=== PATIENT | female | born 1995 | race Caucasian/White ===

== ENCOUNTER 2016-07-12 12:14 | Emergency (ER) | payer OTHER ==
[2016-07-12 12:43] VITALS: BP 120/55
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
== END 2016-07-12 13:46 | disposition home or self-care (01) ==
LOC: UCEAST 12:14
DX: S00.81XA Abrasion of other part of head, initial encounter (principal); S09.90XA Unspecified injury of head, initial encounter; W22.8XXA Striking against or struck by other objects, initial encounter; Y93.9 Activity, unspecified; Y92.9 Unspecified place or not applicable
CPT/HCPCS: 99211; G0463